=== PATIENT | female | born 1930 | race Caucasian/White ===

== ENCOUNTER → 2016-07-21 | Outpatient (CLI) | payer MEDICARE, BC ==
--- NOTE | 2016-07-21 10:21 | XR ---
EXAMINATION TYPE: XR cervical spine comp DATE OF EXAM: 07/21/2016 10:00 AM TECHNIQUE: Frontal, lateral, oblique, and open mouth view of the cervical spine are obtained. 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 Mid neck pain for a few weeks per patient . COMPARISON: None FINDINGS: The cervical spine is visualized in its entirety from C1 thru the top of T1 level, it is s atisfactory in alignment without evidence of acute fracture or dislocation. The pre-vertebral soft t issue appears within normal limits. The C1-C2 articulation shows mild spurring left lateral elements on open mouth view. Vertebral body heights are maintained. There is moderate disc space narrowing with mild spurring C5-C 6 and C6-C7 levels. There are uncovertebral facet degenerative changes felt bilaterally at C3-C4 and C4-C5 levels. The oblique images are within normal limits. Surgical clip in the left neck is noted. IMPRESSION: Multilevel degenerative changes in the cervical spine as detailed above.
== END | disposition home or self-care (01) ==
LOC: RADXRMAIN 09:27
PROVIDERS: ATTEND Internal Medicine
DX: M48.02 Spinal stenosis, cervical region (principal); M46.02 Spinal enthesopathy, cervical region; M47.892 Other spondylosis, cervical region; M47.9 Spondylosis, unspecified
CPT/HCPCS: 72050

== ENCOUNTER → 2017-01-19 | Outpatient (CLI) | payer MEDICARE, BC ==
--- NOTE | 2017-01-19 09:33 | US ---
EXAMINATION TYPE: US abdomen complete DATE OF EXAM: 01/19/2017 COMPARISON: NONE CLINICAL HISTORY: R10.11 ABD PAIN. EXAM MEASUREMENTS: Liver Length: 14.4 cm Gallbladder Wall: 3.0 cm CBD: 0.6 cm Spleen: 8.6 cm Right Kidney: 9.2 x 3.9 x 4.5 cm Left Kidney: 9.0 x 4.5 x 4.7 cm Pancreas: Obscured by bowel gas Liver: Multiple cystic appearing areas visualized, largest in left lobe measuring 2.0 x 1.3 x 1.8 cm Gallbladder: Multiple echogenic foci visualized. Wall measuring upper limits of normal Evidence for sonographic Patel's sign: No CBD: wnl, distal portion obscured by bowel gas Spleen: wnl Right Kidney: No hydronephrosis or masses seen Left Kidney: No hydronephrosis or masses seen Upper IVC: wnl Abd Aorta: Atherosclerotic changes Visualized pancreas is within normal limits on first 2 images. There is diffuse atherosclerotic martines e in visualized aorta without greater than 3 cm aneurysmal change. IVC is seen near hepatic dome on i mage 10. Visualized liver shows some thin-walled lobulated cyst with possible thin septation. No worr isome solid or cystic mass or suspicious intrahepatic ductal dilatation is seen. There are shadowing mobile gallstones in gallbladder. There is no pericholecystic fluid collection or abnormal gallbladde r wall thickening. Remainder study is unremarkable. IMPRESSION: Gallstones without secondary ultrasound evidence for acute cholecystitis.
== END | disposition home or self-care (01) ==
LOC: RADUSWWP 08:27 → EDBD 09:00
PROVIDERS: ATTEND Surgery
DX: K80.20 Calculus of gallbladder without cholecystitis without obstruction (principal)
CPT/HCPCS: 76700